=== PATIENT | female | born 1965 | race Caucasian/White ===

== ENCOUNTER → 2018-05-01 | Outpatient (CLI) | payer OTHER | LOC: LAB.O 16:52 | PROVIDERS: ATTEND Nurse Practitioner | DX: D50.9 Iron deficiency anemia, unspecified (principal); D64.9 Anemia, unspecified ==

== ENCOUNTER → 2018-08-05 | Outpatient (CLI) | payer OTHER | LOC: LAB.O 16:46 | PROVIDERS: ATTEND Nurse Practitioner | DX: D50.9 Iron deficiency anemia, unspecified (principal) ==